=== PATIENT | female | born 1970 | race Caucasian/White ===

== ENCOUNTER → 2019-09-06 | Outpatient (CLI) | payer BC | LOC: M.RAD 10:28 | DX: M85.88 Other specified disorders of bone density and structure, other site (principal) ==

== ENCOUNTER → 2021-01-31 | Outpatient (CLI) | payer BC | LOC: M.MRI 07:07 | PROVIDERS: ATTEND Registered Nurse Diabetes Educator | DX: M47.816 Spondylosis without myelopathy or radiculopathy, lumbar region (principal); M53.87 Other specified dorsopathies, lumbosacral region ==